=== PATIENT | male | born 1975 | race Hispanic/Latino ===

== ENCOUNTER 2018-05-20 09:14 | Outpatient (CLI) | payer OTHER ==
--- NOTE | 2018-05-20 13:15 | MRI ---
NONCONTRAST MRI LUMBAR SPINE: DATE: 05/20/2018. HISTORY: The patient fell at work in April of 2018. Contusion lower back and pelvis. The patient complain s of low back pain and bilateral heel pain. COMPARISON: None available. FINDINGS: The retroperitoneal structures demonstrate a normal nonenhanced MRI appearance. There are focal subc entimeter increased T2 weighted signal intensity foci seen within the neural foramina in the lower th oracic spine at the L1-2 level which likely represent tiny dilated nerve root sleeves at these levels . Conus medullaris is normal in appearance and terminates at the level of the L2 vertebral body. Normal signal intensity is demonstrated in the bone marrow. L1-2 level: There is no disk bulge or disk herniation. Central spinal canal and neural foramen are patent. L2-3 level: There is no disk bulge or disk herniation. Central spinal canal and neural foramen are patent. L3-4 level: There is no disk bulge or disk herniation. Central spinal canal and neural foramen are patent. L4-5 level: There is a minimal disk-osteophyte complex with only very slight effacement of the ventr al aspect of the thecal sac. Neural foramina are patent. L5-S1 level: There is a minimal disk-osteophyte complex greater laterally without narrowing of the c entral spinal canal. There is no significant neural foraminal narrowing. IMPRESSION: Central spinal canal and neural foramen are patent at all levels of the lumbar spine. Only minimal d egenerative disk changes are seen in the lower lumbar spine. POS: [place]
== END 2018-05-20 09:15 | disposition home or self-care (01) ==
LOC: TBSIIMAG 09:14
PROVIDERS: ATTEND Orthopaedic Surgery
DX: S30.0XXA Contusion of lower back and pelvis, initial encounter (principal); M51.36 Other intervertebral disc degeneration, lumbar region
CPT/HCPCS: 72148

== ENCOUNTER 2018-11-28 07:46 | Outpatient (CLI) | payer BC ==
--- NOTE | 2018-11-28 08:43 | CT ---
CT ABDOMEN AND PELVIS WITH IV CONTRAST 11/28/2018 CLINICAL INFORMATION: Left lower quadrant abdominal pain for the past 2 weeks. COMPARISON: 03/04/2016 Technique: Multiple contiguous axial CT images are obtained through the abdomen and pelvis with IV contrast. Cor onal reformatted images are provided. FINDINGS: Lower Chest: Minimal bibasilar atelectasis is present. Vessels: Abdominal aorta is normal in caliber. Abdomen: Portal vein:Patent Gallbladder: Within normal limits for CT imaging. Liver: There are scattered less than 1 cm hypodense lesions within the left hepatic lobe as well as r ight hepatic lobe which were also seen on the prior exam but better delineated on the current study. Findings are overall nonspecific but not significantly changed from the prior study suggesting benign etiology and probably representing small hepatic cysts. Spleen: within normal limits. Pancreas: within normal limits. Adrenals: within normal limits. Kidneys: within normal limits. Bowel: A few scattered colonic diverticula are seen in the descending colon. Appendix: The appendix is visualized and normal in caliber. Peritoneum: No ascites or free air; no fluid collection. Mesentery and Retroperitoneum: No enlarged mesenteric or retroperitoneal lymph nodes. Abdominal Wall: Tiny fat-containing umbilical hernia. Pelvis: Reproductive Organs: No pelvic masses. Pelvis within normal limits. Bladder: within normal limits. Bones: No suspicious lytic or sclerotic osseous lesions are identified. IMPRESSION: 1. No acute findings are seen in the abdomen or pelvis. CT abdomen pelvis is stable compared to prior study in 2017. 2. Stable subcentimeter hypodense lesions in each lobe of the liver unchanged in size or appearance c ompared to prior study and statistically likely represent small cysts. 3. Colonic diverticulosis.
[2018-11-28] MEDS ORDERED: Iopamidol 370 76% 100 ML VIAL ONE (09:00)
== END 2018-11-28 07:47 | disposition home or self-care (01) ==
LOC: SCSCT 07:46
PROVIDERS: ATTEND Family Medicine
DX: R10.32 Left lower quadrant pain (principal); K76.9 Liver disease, unspecified; K57.30 Diverticulosis of large intestine without perforation or abscess without bleeding
CPT/HCPCS: 74177; Q9967